=== PATIENT | male | born 1960 | race Caucasian/White ===

== ENCOUNTER 2017-01-19 22:34 | Emergency (ER) | payer BC ==
[2017-01-19 23:07] LABS: #Lymphocytes 0.7 thou/uL (1.20-3.40); #Monocytes 0.3 thou/uL (0.11-0.59); #Neutrophils 7.7 thou/uL (1.40-6.50); %Basophils 0.2 % (0.0-1.0); %Lymphocytes 7.9 % (21.0-51.0); Hematocrit 32.8 % (42.0-52.0); Mean Platelet Volume 5.8 fL (7.4-10.4); White Blood Cell (WBC) Count 8.6 thou/uL (4.8-10.8)
[2017-01-19 23:14] LABS: Bilirubin Negative (Negative); Blood, Urine Large (Negative); Glucose, Urine (Dipstick) Negative (Negative); Ketone, Urine Negative (Negative); Nitrite Negative (Negative); Protein, Urine (Dipstick) 100 mg/dL (Neg-Trace); Urobilinogen 0.2 mg/dL (0.2-1.0)
[2017-01-19 23:18] LABS: RBC/HPF GREATER THAN 50-TNTC HPF (0-3)
[2017-01-19 23:19] LABS: Squamous Epithelial 0-3 HPF (0-3)
[2017-01-19 23:20] LABS: Bacteria/HPF 2+ HPF (None Seen); Hyaline Casts/LPF NONE SEEN LPF (0-3 Hyaline)
[2017-01-19 23:26] LABS: ALT (SGPT) 21 U/L (8-55); AST (SGOT) 19 U/L (5-34); Alkaline Phosphatase 46 U/L (40-150); Anion Gap 13 mmol/L (10-20); BUN (Urea Nitrogen) 27 mg/dL (8.4-25.7); Bilirubin, Total 1.3 mg/dL (0.2-1.2); Calc. Creatinine Clearance 0 mL/min (70-130); Calcium 8.2 mg/dL (7.8-10.44); Carbon Dioxide 31 mmol/L (22-29); Chloride 95 mmol/L (98-107); Estimated GFR-MDRD 50; Globulin 2.4 g/dL (2.4-3.5); Protein, Total 6.3 g/dL (6.0-8.3)
[2017-01-20] MEDS ORDERED: Ondansetron HCl/PF 4 MG/2 ML Vial ONE (00:53)
[2017-01-20] MEDS ORDERED: Promethazine HCl 25 MG/ML VIAL ONE (00:53)
[2017-01-20] MEDS ORDERED: Ketorolac Tromethamine 30 MG/ML VIAL ONE (00:53)
--- NOTE | 2017-01-20 08:08 | CT ---
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 . . . , HISTORY of breast ca with last chemo 2 days ago (taxotere, carboplatin, herceptin). Persistent naus ea since which is normal post chemo however now has new onset gross hematuria and llq pain. No fevers. TECHNIQUE: Axial computed tomography images of the abdomen and pelvis without intravenous contrast. Coronal reformatted images were created and reviewed. COMPARISON: No relevant prior studies available. FINDINGS: Lower thorax: No acute findings. ABDOMEN: Liver: Unremarkable. Gallbladder and bile ducts: Unremarkable. No calcified stones. No ductal dilation. Pancreas: Unremarkable. No ductal dilation. Spleen: Unremarkable. No splenomegaly. Adrenals: Unremarkable. No mass. Kidneys and ureters: Trace LEFT hydronephrosis with perinephric edema. Increased attenuation within the LEFT ureter most consistent with hemorrhage. Periureteral edema Stomach and bowel: Unremarkable. No obstruction. No mucosal thickening. Appendix: No findings to suggest acute appendicitis. PELVIS: Bladder: Unremarkable. No stones. Reproductive: Unremarkable as visualized. ABDOMEN and PELVIS: Intraperitoneal space: Unremarkable. No free air. No significant fluid collection. Bones/joints: Postoperative changes from prior posterior lumbar spine fusion. Moderate degenerative disc change. No acute fracture. No dislocation. Soft tissues: Unremarkable. Vasculature: Unremarkable. No abdominal aortic aneurysm. Lymph nodes: Unremarkable. No enlarged lymph nodes. IMPRESSION: Perinephric and periureteral edema with trace LEFT hydronephrosis and hemorrhage in the ureter. No definite renal or ureteral stone. These findings may be secondary to acute pyelonephritis. ATN or other acute inflammatory disease of the LEFT kidney should also be considered. Thank you for allowing us to participate in the care of your patient. Dictated and Authenticated by: Shay Horton MD 01/20/2017 1:43 AM Central Time ([place] \T\ [place]) FINAL REPORT EMERGENT AFTER HOURS NONCONTRAST CT ABDOMEN AND PELVIS: DATE: 01/20/17. HISTORY: Left flank pain. History of breast cancer. New-onset gross hematuria and left lower quadrant abdom inal pain. IMPRESSION: 1. Prominent left perinephric inflammatory stranding with pelvocaliectasis left kidney asymmetric t o the right. There is also increased density seen within the left ureter likely related to hemorrha ge in the left ureter. No calculus is visualized. Mild periureteral inflammatory stranding is also present. Pyelonephritis on the left could not be excluded based on this examination. An acute infl ammatory process left kidney is also a possibility. Renal collecting systems are unable to be evalu ated on this nonenhanced CT scan exam. 2. No renal or ureteral calculus is seen bilaterally. There is no hydronephrosis or hydroureter on the right. 3. Findings are in agreement with the preliminary report by [facility]. POS: [facility]
--- OUTSIDE RECORDS SUMMARY | 2017-01-24 23:05 | XMS | Clinical Summary ---
:1960 Author Organization [facility] Address [address] [place] [address] Phone Care Team Providers Name Role Phone , Primary Care Provider Unavailable Allergies Not on File Current Medications Not on file Active Problems Not on file Social History Tobacco Use Types Packs/Day Years Used Date Never Assessed Sex Assigned at Date Recorded Not on file Last Filed Vital Signs Not on file Plan of Treatment Not on file Results Not on filefrom Last 3 Months
== END 2017-01-20 03:39 | disposition home or self-care (01) ==
LOC: ERS 22:34
DX: N17.9 Acute kidney failure, unspecified (principal); C50.929 Malignant neoplasm of unspecified site of unspecified male breast; E86.0 Dehydration; Z87.891 Personal history of nicotine dependence
CPT/HCPCS: 36415; 74176; 80053; 81003; 81015; 85025; 86850; 86900; 86901; 96361; 96374; 96375; J1885; J2405; J2550

== ENCOUNTER 2017-02-15 14:42 | Outpatient (CLI) | payer BC | END 2017-02-15 14:43 | disposition home or self-care (01) | LOC: ULT 14:42 | PROVIDERS: ATTEND Internal Medicine Hematology & Oncology | DX: Z51.11 Encounter for antineoplastic chemotherapy (principal); C50.121 Malignant neoplasm of central portion of right male breast; I34.0 Nonrheumatic mitral (valve) insufficiency; I07.1 Rheumatic tricuspid insufficiency; Z79.899 Other long term (current) drug therapy | CPT/HCPCS: 93306 ==

== ENCOUNTER 2017-03-02 07:30 | Day surgery (SDC) | payer BC ==
[2017-03-01 09:47] VITALS: BMI 32.5
[2017-03-02] MEDS ORDERED: Bupivacaine/Epinephrine 0.25% 30 ML VIAL ONE (08:29)
[2017-03-02] MEDS ORDERED: Isosulfan Blue 50 MG/5 ML VIAL ONE (08:29)
[2017-03-02] MEDS ORDERED: Midazolam HCl 2 mg/2 ml Vial ONE (08:47)
[2017-03-02] MEDS ORDERED: Fentanyl 250 MCG/5 ML VIAL ONE (08:47)
[2017-03-02] MEDS ORDERED: CEFAZOLIN/Water 2 GM/20 ML SYRINGE ONE (10:22)
[2017-03-02] MEDS ORDERED: Ketorolac Tromethamine 30 MG/ML VIAL ONE (10:22)
--- NOTE | 2017-03-02 10:40 | NM ---
NUCLEAR MEDICINE LYMPHOSCINTIGRAPHY OF THE RIGHT BREAST: Date: 03/02/17 HISTORY: Right breast cancer. COMPARISON: None. TECHNIQUE: The patient was administered a total of 0.4 mCi of technetium-99m filtered sulfur colloid subcutaneou s. Four separate aliquots were administered at the 12 o'clock, 3 o'clock, 6 o'clock, and 9 o'clock po sition. FINDINGS: There is uptake of the radiotracer in what appears to be the right axilla, best demonstrated in the r ight lateral projection performed at 1 hour. IMPRESSION: Right axillary sentinel lymph node. POS: [facility]
[2017-03-02 11:05] LABS: Hematocrit 30.8 % (42.0-52.0); Mean Platelet Volume 6.3 fL (7.4-10.4); Red Blood Cell (RBC) Count 3.08 mill/uL (4.70-6.10); White Blood Cell (WBC) Count 3.6 thou/uL (4.8-10.8)
[2017-03-02 11:22] LABS: Anion Gap 7 mmol/L (10-20); BUN (Urea Nitrogen) 10 mg/dL (8.4-25.7); Calc. Creatinine Clearance 118 mL/min (70-130); Calcium 8.7 mg/dL (7.8-10.44); Carbon Dioxide 31 mmol/L (22-29); Chloride 105 mmol/L (98-107); Estimated GFR-MDRD 80
[2017-03-02] MEDS ORDERED: Fentanyl 100 MCG/2 ML VIAL ONE ×2 (12:11→13:36)
[2017-03-02] MEDS ORDERED: HYDROcodone/Acetaminophen 5/325 mg Tablet ONE (15:20)
[2017-03-02] MEDS ORDERED: Glycopyrrolate 0.2 MG/ML 5 ML SYRINGE ONE (16:41)
[2017-03-02] MEDS ORDERED: Lidocaine 1% PF 5 ML VIAL ONE (16:41)
[2017-03-02] MEDS ORDERED: Ondansetron HCl/PF 4 MG/2 ML Vial ONE (16:41)
[2017-03-02] MEDS ORDERED: Propofol 200 MG/20 ML VIAL ONE (16:41)
--- NOTE | 2017-03-03 03:44 | OP ---
DATE OF OPERATION: 03/02/2017 PREOPERATIVE DIAGNOSIS: Right breast cancer. POSTOPERATIVE DIAGNOSIS: Right breast cancer. OPERATION PERFORMED: Right mastectomy with sentinel lymph node biopsy. SURGEON: Dr. Andrés Tsai. ANESTHESIA: General endotracheal. INDICATIONS: The patient is a 56-year-old white male. He was diagnosed with right breast cancer. H is cancer is HER2-positive and for this reason, he has received a course of neoadjuvant chemotherapy. The mass has improved substantially. He never had definite evidence of lymphadenopathy. He is luz en to the operating room at this time for mastectomy and sentinel lymph node biopsy. DESCRIPTION OF OPERATION: Prior surgery, lymphoscintigraphy was performed, revealing sentinel lymph nodes within the right axilla. He is taken to the operating room where general endotracheal anesthes ia was obtained with the patient in supine position. A 3 mL of Lymphazurin was infiltrated in the ri ght periareolar subdermal tissue. The area was massaged for five minutes. The right breast and axil la were then prepped with ChloraPrep and draped in sterile fashion. An elliptical incision was fashi oned across the right chest wall to include the nipple and the surrounding glandular tissue. The inc ision was carried laterally towards the inferior aspect of the axilla. The skin incision was carried out with the plasma blade and all dissection was performed with the plasma blade. Dissection was in itially carried out in the axilla, elevating the superior flap. I identified areas of maximum radio intensity. Blue dye was seen within the lymphatics vessels as well. There was one dominant sentinel node that was quickly identified and removed. All investing lymphatics were divided between clamps and 2-0 silk ties. Two additional areas of sentinel nodes were identified, one of these had a palpab le node with some blue staining and the other had area of increased radio intensity. These two addit ional areas were dissected and removed in a similar fashion as the first. The area was inspected and found to be meticulously hemostatic. The mastectomy was then performed by elevating flaps superiorly, inferiorly, and medially. Dissectio n was carried down to the chest wall. The breast tissue was then swept off the chest wall in a media l to lateral fashion towards the axilla. The dissection was completed with avoidance of axillary dis section. Specimen was passed off the field and tagged for orientation. The wound was irrigated with saline. Hemostasis was meticulous. A 19 Persian round fluted drain was placed within the wound and brought out laterally and inferiorly and secured with a 3-0 nylon suture. The wound was then closed in layers with 3-0 Vicryl and 4-0 Monocryl. Dermabond was placed externa lly. Fluffed gauze dressing was placed over the mastectomy site and a 6 inch Miguel wrap was wrapped circumfe rentially around the chest. There were no complications. Blood loss was negligible. Patient tolera edinson the procedure well and was taken to recovery room in stable condition.
== END 2017-03-02 15:33 | disposition home or self-care (01) ==
LOC: SDC 07:30
PROVIDERS: ATTEND Specialist
PROC: 0HTT0ZZ Resection of Right Breast, Open Approach (ICD-10-PCS; principal; 2017-03-02)
DX: D05.11 Intraductal carcinoma in situ of right breast (principal); M19.90 Unspecified osteoarthritis, unspecified site; Z17.0 Estrogen receptor positive status [ER+]; Z79.899 Other long term (current) drug therapy; Z79.891 Long term (current) use of opiate analgesic; Z95.828 Presence of other vascular implants and grafts; Z98.890 Other specified postprocedural states; Z87.891 Personal history of nicotine dependence
CPT/HCPCS: 78195; 80048; 85027; 88307; 88333; 88342; 96374; A9541; J0131; J1885; J2001; J2250; J2405; J2704; J3010; Q9968

== ENCOUNTER 2017-06-28 14:05 | Outpatient (CLI) | payer BC | END 2017-06-28 14:06 | disposition home or self-care (01) | LOC: ULT 14:05 | PROVIDERS: ATTEND Internal Medicine Hematology & Oncology | DX: Z51.11 Encounter for antineoplastic chemotherapy (principal); C50.929 Malignant neoplasm of unspecified site of unspecified male breast; Z79.899 Other long term (current) drug therapy | CPT/HCPCS: 93306 ==